=== PATIENT | female | born 1955 | race Caucasian/White ===

== ENCOUNTER → 2024-05-03 15:39 | Outpatient (CLI) | payer OTHER, SELFPAY ==
[2024-05-03 18:44] LABS: TSH w/ Reflex to FT4 6.02 uIU/mL (0.47-4.68)
[2024-05-03 19:13] LABS: Free T4, Direct Thyroxine 1.22 ng/dL (0.78-2.19)
== END ==
LOC: LAB 15:42
PROVIDERS: PCP Family Medicine; Referring Provider Family Medicine; Visit Provider Family Medicine
DX: R79.0 Abnormal level of blood mineral (principal); E03.9 Hypothyroidism, unspecified; F32.A Depression, unspecified; F41.9 Anxiety disorder, unspecified; R07.9 Chest pain, unspecified
CPT/HCPCS: 36415; 83735; 84439; 84443

== ENCOUNTER → 2024-10-20 14:36 | Outpatient (CLI) | payer MEDICARE, SELFPAY ==
--- NOTE | 2024-10-20 14:37 | DI.RAD.S_ITS ---
PROCEDURE: XR CHEST 2V INDICATIONS: chronic SOB on exertion TECHNIQUE: 2 views of the chest were acquired. COMPARISON: None. FINDINGS: Heart, mediastinum and pulmonary vascular: Heart is normal in size and configuration. Mediastinum is unremarkable. Pulmonary vascular is normal. Lungs: Clear Pleural spaces: Normal-no effusions or pneumothorax. 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 Dictated by: Brandon Luna M.D. on 10/21/2024 at 11:39 Approved by: Brandon Luna M.D. on 10/21/2024 at 11:39
[2024-10-20 15:05] LABS: Add Manual Diff / Slide Review NO; Basophils Absolute Auto 100 /uL (0-100); Basophils Percent Auto 1.1 % (0-2); Eosinophils Absolute Auto 500 /uL (0-450); Hematocrit 41.3 % (36-46); Hemoglobin 13.7 g/dL (12.0-16.0); Lymphocytes Absolute Auto 1600 /uL (1100-4500); Mean Corpuscular HGB Conc 33.2 % (30-36); Mean Corpuscular Hemoglobin 29.1 PG (26-34); Mean Corpuscular Volume 87.8 fL (80-100); Monocytes Absolute Auto 500 /uL (0-900); Monocytes Percent Auto 8.5 % (3-14); Neutrophils Absolute Auto 3400 /uL (1500-7000); Neutrophils Percent Auto 55.4 % (50-75); Platelet Count 195 X10^3/uL (150-400); Red Cell Distribution Width 14.2 % (11.6-14.8); White Blood Cell Count 6.1 X10^3/uL (4.5-11.0)
[2024-10-20 15:34] LABS: Alanine Aminotransferase 23 IU/L (<35); Albumin 4.4 g/dL (3.5-5.0); Albumin Globulin Ratio 1.6 (1.0-2.8); Alkaline Phosphatase 80 U/L (38-126); Aspartate Aminotransferase 28 IU/L (14-36); BUN Creatinine Ratio 20.5 (6-22); Bilirubin Total 0.6 mg/dL (0.2-1.3); Blood Urea Nitrogen 16 mg/dL (7-17); Calcium 9.1 mg/dL (8.4-10.2); Carbon Dioxide 25 mmol/L (22-32); Chloride 106 mmol/L (98-107); Creatine Kinase 76 U/L (30-135); Estimated Glomerular Filt Rate > 60 mL/min (>60); Globulin 2.8 g/dL (1.7-4.1); Glucose 94 mg/dL (80-110); HEMOLYSIS < 15 (0-50); Potassium 4.2 mmol/L (3.4-5.1); Sodium 139 mmol/L (137-145); Total Protein 7.2 g/dL (6.3-8.2)
[2024-10-20 15:44] LABS: NT-proBNP (BNP-Adult 18+) 63 pg/mL (<125)
[2024-10-20 16:05] LABS: TSH w/ Reflex to FT4 1.26 uIU/mL (0.47-4.68)
== END ==
PROVIDERS: PCP Family Medicine; Referring Provider Physician Assistant; Visit Provider Physician Assistant
DX: R06.09 Other forms of dyspnea (principal); E03.9 Hypothyroidism, unspecified; R25.2 Cramp and spasm; M51.34 Other intervertebral disc degeneration, thoracic region
CPT/HCPCS: 36415; 71046; 80053; 82550; 83880; 84443; 85025

== ENCOUNTER → 2024-11-23 17:18 | Outpatient (CLI) | payer MEDICARE, SELFPAY ==
[2024-11-23 18:09] LABS: Add Manual Diff / Slide Review NO; Basophils Absolute Auto 100 /uL (0-100); Basophils Percent Auto 0.9 % (0-2); Eosinophils Absolute Auto 1200 /uL (0-450); Eosinophils Percent Auto 15.7 % (2-4); Hematocrit 41.5 % (36-46); Lymphocytes Absolute Auto 1400 /uL (1100-4500); Lymphocytes Percent Auto 19.5 % (25-40); Mean Corpuscular HGB Conc 33.8 % (30-36); Mean Corpuscular Hemoglobin 29.8 PG (26-34); Mean Corpuscular Volume 88.2 fL (80-100); Monocytes Absolute Auto 600 /uL (0-900); Monocytes Percent Auto 7.6 % (3-14); Neutrophils Absolute Auto 4200 /uL (1500-7000); Neutrophils Percent Auto 56.3 % (50-75); Platelet Count 204 X10^3/uL (150-400); Red Cell Distribution Width 14.1 % (11.6-14.8); White Blood Cell Count 7.4 X10^3/uL (4.5-11.0)
== END ==
PROVIDERS: PCP Family Medicine; Referring Provider Dermatology; Visit Provider Dermatology
DX: R21 Rash and other nonspecific skin eruption (principal)
CPT/HCPCS: 36415; 85025; 86038

== ENCOUNTER → 2025-01-11 13:12 | Outpatient (CLI) | payer MEDICARE, SELFPAY | LOC: RESP 13:12 | PROVIDERS: PCP Internal Medicine; Referring Provider Internal Medicine; Visit Provider Internal Medicine | DX: R06.09 Other forms of dyspnea (principal) | CPT/HCPCS: 94060; 94726; 94729 ==

== ENCOUNTER → 2025-06-16 12:05 | Outpatient (CLI) | payer MEDICARE, SELFPAY ==
[2025-06-16 12:25] LABS: Hematocrit 42.9 % (36-46); Hemoglobin 14.6 g/dL (12.0-16.0); Mean Corpuscular HGB Conc 34.0 % (30-36); Mean Corpuscular Hemoglobin 29.6 PG (26-34); Mean Corpuscular Volume 86.9 fL (80-100); Platelet Count 209 X10^3/uL (150-400)
[2025-06-16 12:34] LABS: Hemoglobin A1C% w Est Avg Glu 5.6 % (4.0-6.0)
[2025-06-16 12:37] LABS: Alanine Aminotransferase 20 IU/L (<35); Albumin 4.7 g/dL (3.5-5.0); Albumin Globulin Ratio 1.6 (1.0-2.8); Alkaline Phosphatase 83 U/L (38-126); Blood Urea Nitrogen 12 mg/dL (7-17); Calcium 9.4 mg/dL (8.4-10.2); Carbon Dioxide 26 mmol/L (22-32); Chloride 106 mmol/L (98-107); Cholesterol 275 mg/dL (140-199); Estimated Glomerular Filt Rate > 60 mL/min (>60); Globulin 3.0 g/dL (1.7-4.1); Glucose 99 mg/dL (70-99); HDL Cholesterol 55 mg/dL (40-60); HEMOLYSIS < 15 (0-50); Potassium 4.4 mmol/L (3.4-5.1); Sodium 140 mmol/L (137-145); Total Protein 7.7 g/dL (6.3-8.2); Triglycerides 220 mg/dL (35-150)
[2025-06-16 12:49] LABS: Troponin I < 0.012 ng/mL (0.01-0.034)
[2025-06-16 13:08] LABS: TSH w/ Reflex to FT4 4.30 uIU/mL (0.47-4.68)
[2025-06-16 13:28] LABS: Vitamin B12 Reflex MMA if <400 325 pg/mL (239-931)
== END ==
PROVIDERS: PCP Internal Medicine; Referring Provider Internal Medicine; Visit Provider Internal Medicine
DX: E03.9 Hypothyroidism, unspecified (principal); R73.01 Impaired fasting glucose; R06.09 Other forms of dyspnea; E78.2 Mixed hyperlipidemia; E53.8 Deficiency of other specified B group vitamins; R77.9 Abnormality of plasma protein, unspecified
CPT/HCPCS: 36415; 80053; 80061; 82607; 83036; 83921; 84155; 84165; 84443; 84484; 85027; 85379

== ENCOUNTER → 2025-06-23 12:29 | Outpatient (CLI) | payer MEDICARE, SELFPAY ==
--- NOTE | 2025-06-23 12:30 | DI.ECHO.S_ITS ---
[facility] : : [id number] : : [place] : : [id number] : : Phone: [phone] Echocardiogram Report + + :Name: DIONICIO GOMEZ Study Date: 06/23/2025 Height: 62 in : :[facility] ReadingLocation: Weight: 186 lb : : Gender: Female BSA: 1.9 m2 : :: 1955 Age: 70 yrs BP: 130/90 mmHg: :Reason For Study: Chest pain : :Ordering Physician: JORDAN, : :NAV Performed By: Owen Hernandez : :Referring: NAV ORTEGA : + + Interpretation Summary 1) Mildly increased left ventricular thickness (concentric) with normal size, normal wall motion, and normal systolic function (EF 60-65%). 2) Normal right ventricular size and function. 3) There is mild aortic regurgitation. 4) No prior Echo available for comparison. Procedure: A two-dimensional transthoracic echocardiogram with color flow and Doppler was performed. The study quality was technically adequate. There is no prior echocardiogram noted for this patient. The heart rate ranged between 70-80 bpm during the study. Left Ventricle: The left ventricle is normal in size. Left ventricular wall thickness is mildly increased. Left ventricular systolic function is normal. The ejection fraction is estimated to be 60-65%. There are no focal wall motion abnormalities. Grade I diastolic dysfunction with normal left atrial pressure. Right Ventricle: The right ventricle is normal in size and function. Atria: The left atrial size is normal. Right atrial size is normal. There is no Doppler evidence for an interatrial shunt. Mitral Valve: The mitral valve leaflets appear to open well. There is no mitral valve stenosis. There is trace mitral regurgitation. Aortic Valve: The aortic valve is trileaflet. The aortic valve opens well. There is no aortic valve stenosis. There is mild aortic regurgitation. Tricuspid Valve: The tricuspid valve is not well visualized, but is grossly normal. There is trace tricuspid regurgitation. The right ventricular systolic pressure is estimated to be at least 19 mmHg based on an estimated right atrial pressure of 3 mm Hg. Pulmonic Valve: The pulmonic valve is not well seen, but is grossly normal. There is a trace or physiologic amount of pulmonic regurgitation. Great Vessels: The aortic root is normal size. Based on patients BSA of 1.9 m2, the proximal ascending aorta is within normal range, with a max diameter of 3.9 cm. The pulmonary artery is normal size. The IVC is of normal diameter and collapses greater than 50% with a sniff. This suggests a low right atrial pressure of 3 mm Hg. Pericardium/ Pleura There is no pericardial effusion. MMode/2D Measurements & Calculations LVIDd: 4.0 cm LVOT diam: 2.1 cm LVIDs: 2.3 cm Ao root diam: 3.1 cm FS: 41.2 % asc Aorta Diam: 3.9 cm IVSd: 1.1 cm LVPWd: 1.1 cm LV nance. diameter/BSA (cm/m^2): 2.2 LV sys. diameter/BSA (cm/m^2): 1.3 LA A2 area: 12.8 cm2 RA long axis: 5.1 cm LA A4 area: 11.8 cm2 RA area: 12.4 cm2 LA length (vol): 4.4 cm RA vol: 25.8 ml LA vol: 29.3 ml RA : 13.9 ml/m2 LA vol index: 15.8 ml/m2 IVC diam: 1.8 cm RVD1 (basal): 2.3 cm RVD2 (mid): 2.0 cm TAPSE: 1.7 cm Doppler Measurements & Calculations Ao V2 max: 95.2 cm/sec LVOT Max Ahsan: 87.0 cm/sec Ao V2 mean: 69.6 cm/sec LV V1 max P.0 mmHg Ao max P.6 mmHg LV V1 VTI: 16.7 cm Ao mean P.1 mmHg MARKIE(I,D): 3.1 cm2 Ao V2 VTI: 18.7 cm MARKIE(V,D): 3.2 cm2 sev ratio: 0.89 MARKIE indexed to BSA (cm^2/m^2): 1.7 AI P1/2t: 692.7 msec AI dec slope: 125.8 cm/sec2 MV E max ahsan: 50.7 cm/sec TR max ahsan: 198.2 cm/sec MV A max ahsan: 81.0 cm/sec TR max P.7 mmHg MV E/A: 0.63 PA V2 max: 64.8 cm/sec Med Peak E' Ahsan: 4.1 cm/sec PA V2 mean: 40.2 cm/sec E/E' med: 12.4 PA mean P.75 mmHg Lat Peak E' Ahsan: 5.2 cm/sec PA pr(Accel): 37.9 mmHg E/E' lat: 9.7 E/e' average: 11.1 MV dec time: 0.17 sec SV(LVOT): 57.6 ml Qp/Qs (V,Ao): 1.0/4.9 Qp/Qs (V,LVOT): 1.0/2.1 Reading Physician:01:[id number] PM
== END ==
PROVIDERS: PCP Internal Medicine; Referring Provider Internal Medicine; Visit Provider Internal Medicine
DX: I35.1 Nonrheumatic aortic (valve) insufficiency (principal); R06.09 Other forms of dyspnea; R07.9 Chest pain, unspecified; Z82.49 Family history of ischemic heart disease and other diseases of the circulatory system
CPT/HCPCS: 93306

== ENCOUNTER → 2025-06-23 14:56 | Outpatient (CLI) | payer MEDICARE, SELFPAY ==
--- NOTE | 2025-06-23 14:59 | DI.CT.S_ITS ---
PROCEDURE: CT ANGIO CHEST PE PROTOCOL INDICATIONS: chest pain TECHNIQUE: After the administration of intravenous contrast, 2 mm thick sections acquired from the pulmonary apices to the posterior costophrenic angles. 3-dimensional maximum intensity projection (MIP) coronal and sagittal reformats were then acquired through the thorax. For radiation dose reduction, the following was used: automated exposure control, adjustment of mA and/or kV according to patient size. COMPARISON: None. FINDINGS: Quality: Diagnostic. Vasculature: Aorta: No aneurysm. Pulmonary arteries: No emboli. Lungs: Parenchyma: Clear. Airways: Patent. Pleura: No pneumothorax. No pleural effusion. Mediastinum: Thyroid: Unremarkable. Esophagus: Unremarkable. Heart: Normal size. Lymph nodes: No adenopathy. Other: Chest wall: Unremarkable. Upper abdomen: Unremarkable. Bones: No aggressive osseous lesion. IMPRESSION: No pulmonary embolus. No acute cardiopulmonary process. Dictated by: Juliocesar Bullard M.D. on 06/23/2025 at 15:41 Approved by: Juliocesar Bullard M.D. on 06/23/2025 at 15:46
== END ==
PROVIDERS: PCP Internal Medicine; Referring Provider Internal Medicine; Visit Provider Internal Medicine
DX: I35.1 Nonrheumatic aortic (valve) insufficiency (principal); R07.9 Chest pain, unspecified; R06.09 Other forms of dyspnea; Z82.49 Family history of ischemic heart disease and other diseases of the circulatory system
CPT/HCPCS: 71275; 93306; Q9967